=== PATIENT | female | born 1990 | race Caucasian/White ===

== ENCOUNTER 2021-03-23 15:26 | Inpatient (IN) | payer BC ==
[2021-03-23] MEDS ORDERED: Ondansetron 4 MG/2 ML SDV IVPUSH PRN (16:01)
[2021-03-23] MEDS ORDERED: Nalbuphine 10 MG/1 ML Vial IVPUSH PRN (16:01)
[2021-03-23] MEDS ORDERED: Sodium Chloride 0.9% 10 ML Syringe FLUSH PRN (16:01)
--- NOTE | 2021-03-23 16:04 | PCM.LDHP ---
L&D History of Present Illness - General Date of Service: 03/23/21 Admit Problem/Dx: Patient Status Order with Admit Dx/Problem 03/23/21 16:01 Patient Status [ADT] Routine Admission Diagnosis/Problem Admission Diagnosis/Problem Normal in third trimester Source of Information: Patient History Limitations: Reports: No Limitations - History of Present Illness Introduction:: Patient is a 31 y/o at 40 4/7 wks who presents with concerns of SROM. Occurred at about 1400 today. Few larger gushes per her report. 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 LMP (Approximate): - Past Surgical History HEENT Surgical History: Reports: Oral Surgery GI Surgical History: Reports: Appendectomy Female Surgical History: Reports: Section Social & Family History - Tobacco Use Tobacco Use Status *Q: Former Tobacco User - Alcohol Use Alcohol Use History: No - Recreational Drug Use Recreational Drug Use: No H&P Review of Systems - Review of Systems: Review Of Systems: See Below General: Reports: No Symptoms Pulmonary: Reports: No Symptoms Cardiovascular: Reports: No Symptoms Gastrointestinal: Reports: No Symptoms Genitourinary: Reports: No Symptoms Musculoskeletal: Reports: No Symptoms L&D Exam - Exam Exam: See Below - OB Specific Contraction Intensity: Irritability Movement: Active Heart Tones: Present Heart Tones per Min: 135 Heart Rate (FHR) Variability: Moderate (6-25 bmp) - Flores Score Flores Score Cervix Position: Midposition Flores Score Consistency: Soft Flores Score Effacement: 51-70% Flores Score Dilation: 1-2 cm Flores Score 's Station: -2 Flores Score Total: 7 - Exam General: Alert, Oriented, Cooperative Lungs: Clear to Auscultation, Normal Respiratory Effort Cardiovascular: Regular Rate, Regular Rhythm GI/Abdominal Exam: Soft, Non-Tender Genitourinary: Normal external exam Extremities: Normal Inspection Skin: Warm, Dry, Intact - Patient Data Result Diagrams: 03/23/21 16:38 - Problem List (1) 40 weeks gestation of SNOMED Code(s): 00294335 ICD Code: Z3A.40 - 40 WEEKS GESTATION OF Status: Acute Current Visit: Yes (2) History of delivery SNOMED Code(s): 038093932 ICD Code: Z98.891 - HISTORY OF UTERINE SCAR FROM PREVIOUS SURGERY Status: Acute Current Visit: Yes (3) Desires (vaginal after ) trial SNOMED Code(s): 745189904, 962722386 ICD Code: O34.219 - MATERNAL CARE FOR UNSP TYPE SCAR FROM PREVIOUS DEL Status: Acute Current Visit: Yes (4) PROM (premature rupture of membranes) SNOMED Code(s): 26330960 ICD Code: O42.90 - LEÓN ROM, 7TH0 BETW RUPT & ONST LABR, UNSP WEEKS OF GEST Status: Acute Current Visit: Yes Qualifiers: PROM onset of labor timing: unspecified duration between rupture of membranes and onset of labor PROM gestational age: full term Qualified Code(s): O42.92 - Full-term premature rupture of membranes, unspecified as to length of time between rupture and onset of labor Problem List Initiated/Reviewed/Updated: Yes Orders Last 24hrs: Active Orders 24 hr Category Date Time Status Patient Status [ADT] Routine ADT 03/23/21 16:01 Ordered Activity as Tolerated [RC] PFP Care 03/23/21 16:01 Ordered Heart Tones [RC] ASDIRECTED Care 03/23/21 16:01 Ordered Non Stress Test [RC] PER UNIT ROUTINE Care 03/23/21 16:01 Ordered Notify Provider [RC] PFP Care 03/23/21 16:01 Ordered Notify Provider [RC] PRN Care 03/23/21 16:01 Ordered Peripheral IV Care [RC] . DIRECTED Care 03/23/21 16:01 Ordered Vital Signs [RC] PER UNIT ROUTINE Care 03/23/21 16:01 Ordered Regular Diet [DIET] Diet 03/23/21 Dinner Ordered CBC W/O DIFF,HEMOGRAM [HEME] Routine Lab 03/23/21 16:01 Ordered CORONAVIRUS COVID-19 CHANDU [MOLEC] Stat Lab 03/23/21 16:03 Ordered HEP C VIRUS AB [REF] Routine Lab 03/23/21 16:01 Ordered RAPID PLASMA REAGIN,RPR [CHEM] Routine Lab 03/23/21 16:01 Ordered TYPE AND SCREEN [BBK] Routine Lab 03/23/21 16:01 Ordered Lactated Ringers [Ringers, Lactated] 1,000 ml Med 03/23/21 16:15 Ordered IV ASDIRECTED Nalbuphine [Nubain] Med 03/23/21 16:01 Ordered 10 mg IVPUSH Q2H PRN Ondansetron [Zofran] Med 03/23/21 16:01 Ordered 4 mg IVPUSH Q4H PRN Oxytocin/Lactated Ringers [Pitocin in LR 10 Units/1,000 Med 03/23/21 16:15 Ordered ML] 10 unit in 1,000 ml IV .CONTINUOUS Sodium Chloride 0.9% [Saline Flush] Med 03/23/21 16:01 Ordered 10 ml FLUSH ASDIRECTED PRN Electronic Heart Tones Ext w TOCO [WOMSER] Oth 03/23/21 16:01 Ordered Routine Electronic Heart Tones Internal [WOMSER] Per Unit Oth 03/23/21 16:01 Ordered Routine Peripheral IV Insertion Adult [OM.PC] Routine Oth 03/23/21 16:01 Ordered Resuscitation Status Routine Resus Stat 03/23/21 16:01 Ordered Assessment/Plan Comment:: * Labs done * GBS negative * Forebag ruptured, continue to wait for contractions. Reviewed if no contractions by 6 hours post ROM may need to consider pitocin augmentation * Pain management per patient preference * Anticipate
[2021-03-23] MEDS ORDERED: Oxytocin/Lactated Ringers 10 UNIT/1,000 ML BAG IV SCH (16:15)
[2021-03-23] MEDS: Lactated Ringers 1,000 ML IV SCH (21:39)
[2021-03-23] MEDS ORDERED: Bupivacaine/fentaNYL/NS 100 ML Bag EPIDUR PRN (22:58)
[2021-03-23] MEDS ORDERED: fentaNYL 100 MCG/2 ML SDV EPIDUR PRN (22:58)
[2021-03-23] MEDS ORDERED: ePHEDrine 50 MG/ML SDV IVPUSH PRN (22:58)
[2021-03-23] MEDS ORDERED: diphenhydrAMINE 50 MG/ML SDV IVPUSH PRN (22:58)
--- NOTE | 2021-03-23 23:13 | PCM.PREANE ---
Preanesthetic Assessment - Procedure Proposed Procedure: Labor epidural - Anesthesia/Transfusion/Family Hx Anesthesia History: Prior Anesthesia Without Reaction Other Type of Anesthesia Reaction Comment: hypotension with epidural Family History of Anesthesia Reaction: No Transfusion History: No Prior Transfusion(s) Intubation History: Unknown - Review of Systems General: No Symptoms Pulmonary: No Symptoms Cardiovascular: No Symptoms Gastrointestinal: Abdominal Pain (uterine contractions) Neurological: No Symptoms Other: Reports: None - Physical Assessment NPO Status Date: 03/23/21 NPO Status Time: 18:00 Vital Signs: Last Vital Signs Temp 98.3 F 03/23/21 16:01 Pulse 87 03/23/21 16:01 Resp 16 03/23/21 16:01 BP 109/80 03/23/21 16:01 Pulse Ox 100 03/23/21 16:01 Height: 1.63 m Weight: 83.915 kg ASA Class: 2 Mental Status: Alert & Oriented x3 Dentition: Reports: Normal Dentition Thyro-Mental Finger Breadths: 3 Mouth Opening Finger Breadths: 3 ROM/Head Extension: Full Lungs: Clear to Auscultation, Normal Respiratory Effort Cardiovascular: Regular Rate, Regular Rhythm - Lab Values: Laboratory Last Values WBC 7.47 K/mm3 (3.98-10.04) 03/23/21 16:38 RBC 3.97 M/mm3 (3.98-5.22) L 03/23/21 16:38 Hgb 12.1 gm/dl (11.2-15.7) 03/23/21 16:38 Hct 35.4 % (34.1-44.9) 03/23/21 16:38 MCV 89.2 fl (79.4-94.8) 03/23/21 16:38 MCH 30.5 pg (25.6-32.2) 03/23/21 16:38 MCHC 34.2 g/dl (32.2-35.5) 03/23/21 16:38 RDW Std Deviation 41.5 fL (36.4-46.3) 03/23/21 16:38 Plt Count 168 K/mm3 (182-369) L 03/23/21 16:38 MPV 10.6 fl (9.4-12.3) 03/23/21 16:38 RPR Non-reactive (NONREACTIVE) 03/23/21 16:38 SARS-CoV-2 RNA (CHANDU) Negative (NEGATIVE) 03/23/21 16:10 Blood Type B POSITIVE 03/23/21 16:01 Gel Antibody Screen Negative 03/23/21 16:01 - Allergies Allergies/Adverse Reactions: Allergies Allergy/AdvReac Type Severity Reaction Status Date / Time environmental Allergy Other Uncoded 03/23/21 17:26 - Blood Blood Available: Yes Product(s) Available: PRBC - Acknowledgements Anesthesia Type Planned: Epidural Pt an Appropriate Candidate for the Planned Anesthesia: Yes Alternatives and Risks of Anesthesia Discussed w Pt/Guardian: Yes Pt/Guardian Understands and Agrees with Anesthesia Plan: Yes PreAnesthesia Questionnaire HEENT History: Reports: Impaired Vision, Other (See Below) Other HEENT History: contacts and glasses Respiratory History: Reports: Other (See Below) Other Respiratory History: nasal stuffiness with allergies Gastrointestinal History: Reports: GERD 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: Psychiatric History: Reports: Anxiety, Depression - Past Surgical History HEENT Surgical History: Reports: Oral Surgery GI Surgical History: Reports: Appendectomy Female Surgical History: Reports: Section - SUBSTANCE USE Tobacco Use Status *Q: Former Tobacco User Tobacco Use Within Last Twelve Months: No Second Hand Smoke Exposure: No Days Per Week of Alcohol Use: 0 Recreational Drug Use History: No - HOME MEDS Home Medications: Home Meds Cetirizine HCl [Zyrtec] 10 mg PO ASDIRECTED PRN 03/23/21 [History] No122/Iron/Folic Acid [ Multi Tablet] 1 each PO DAILY 03/23/21 [History] - CURRENT (IN HOUSE) MEDS Current Meds: Current Medications Diphenhydramine HCl (Diphenhydramine 50 Mg/Ml Sdv) 25 mg IVPUSH Q6H PRN PRN Reason: pruritis Ephedrine Sulfate (Ephedrine 50 Mg/Ml Sdv) 5 mg IVPUSH ASDIRECTED PRN PRN Reason: Hypotension Fentanyl (Fentanyl 100 Mcg/2 Ml Sdv) 100 mcg EPIDUR Q3H PRN PRN Reason: Pain Fentanyl/Bupivacaine HCl (Bupivacaine/Fentanyl/Ns 100 Ml Bag) 100 ml EPIDUR ASDIRECTED PRN PRN Reason: Pain Oxytocin/Lactated Ringer's (Pitocin In Lr 10 Units/1,000 Ml) 10 unit in 1,000 mls @ 500 mls/hr IV .CONTINUOUS JONAH Lactated Ringer's (Ringers, Lactated) 1,000 mls @ 100 mls/hr IV ASDIRECTED JONAH Last Admin: 03/23/21 21:39 Dose: 100 mls/hr Documented by: Nalbuphine HCl (Nalbuphine 10 Mg/1 Ml Vial) 10 mg IVPUSH Q2H PRN PRN Reason: Pain Last Admin: 03/23/21 20:36 Dose: 10 mg Documented by: Ondansetron HCl (Ondansetron 4 Mg/2 Ml Sdv) 4 mg IVPUSH Q4H PRN PRN Reason: Nausea/Vomiting Sodium Chloride (Sodium Chloride 0.9% 10 Ml Syringe) 10 ml FLUSH ASDIRECTED PRN PRN Reason: Keep Vein Open
[2021-03-24] MEDS ORDERED: Bupivacaine 0.25% 10 ML SDV ONE
--- NOTE | 2021-03-24 03:18 | PCM.DEL ---
L & D Note - General Info Date of Service: 03/24/21 - Delivery Note Labor: Spontaneous Delivery Outcome: Livebirth Delivery Method: Spontaneous Vaginal Delivery-Single Delivery Mode: Spontaneous Presentation: Right Occiput Anterior (HELENE) Nuchal Cord: None Anesthesia Type: Epidural Amniotic Fluid Description: Clear Episiotomy Type: None Laceration: None Placenta: Intact, Spontaneous Cord: 3 Vessels Estimated Blood Loss: 300 Resuscitation Needed: Yes [place]: Bulb Syringe, Stimulated, Warmed, [place] Used, Warmer Used Delivery Comments (Free Text/Narrative):: Patient found to be complete and began pushing. With maternal pushing effort head delivered from HELENE presentation. No nuchal cord present. With gentle downward traction shoulders and body delivered. placed on maternal abdomen. Cord clamped and cut. Cord blood obtained. Placenta allowed time to separate and expelled intact. Inspection of perineum showed no lacerations - General Info Date of Service: 03/24/21 - Patient Data Vitals - Most Recent: Last Vital Signs Temp 36.8 C 03/23/21 16:01 Pulse 87 03/23/21 16:01 Resp 16 03/23/21 16:01 BP 109/80 03/23/21 16:01 Pulse Ox 100 03/23/21 16:01 Weight - Most Recent: 83.915 kg - Exam Urinary Catheter Total Time: 0Days 0Hours - Problem List & Annotations (1) 40 weeks gestation of SNOMED Code(s): 39548757 Code(s): Z3A.40 - 40 WEEKS GESTATION OF Status: Acute Current Visit: Yes (2) History of delivery SNOMED Code(s): 722245597 Code(s): Z98.891 - HISTORY OF UTERINE SCAR FROM PREVIOUS SURGERY Status: Acute Current Visit: Yes (3) Desires (vaginal after ) trial SNOMED Code(s): 321987316, 382509339 Code(s): O34.219 - MATERNAL CARE FOR UNSP TYPE SCAR FROM PREVIOUS DEL Status: Acute Current Visit: Yes (4) PROM (premature rupture of membranes) SNOMED Code(s): 87345059 Code(s): O42.90 - LEÓN ROM, 7TH0 BETW RUPT & ONST LABR, UNSP WEEKS OF GEST Status: Acute Current Visit: Yes Qualifiers: PROM onset of labor timing: unspecified duration between rupture of membranes and onset of labor PROM gestational age: full term Qualified Code(s): O42.92 - Full-term premature rupture of membranes, unspecified as to length of time between rupture and onset of labor (5) , delivered, current hospitalization SNOMED Code(s): 681457874 Code(s): O34.219 - MATERNAL CARE FOR UNSP TYPE SCAR FROM PREVIOUS DEL Status: Acute Current Visit: Yes - Problem List Review Problem List Initiated/Reviewed/Updated: Yes - My Orders Last 24 Hours: My Active Orders 03/23/21 16:01 Activity as Tolerated [RC] PFP Heart Tones [RC] ASDIRECTED Notify Provider [RC] PFP Notify Provider [RC] PRN Peripheral IV Care [RC] . DIRECTED Vital Signs [RC] PER UNIT ROUTINE Nalbuphine [Nubain] 10 mg IVPUSH Q2H PRN Ondansetron [Zofran] 4 mg IVPUSH Q4H PRN Sodium Chloride 0.9% [Saline Flush] 10 ml FLUSH ASDIRECTED PRN Electronic Heart Tones Ext w TOCO [WOMSER] Routine Electronic Heart Tones Internal [WOMSER] Per Unit Routine Peripheral IV Insertion Adult [OM.PC] Routine Resuscitation Status Routine 03/23/21 16:13 Patient Status [ADT] Routine 03/23/21 16:15 Lactated Ringers [Ringers, Lactated] 1,000 ml IV ASDIRECTED Oxytocin/Lactated Ringers [Pitocin in LR 10 Units/1,000 ML] 10 unit in 1,000 ml IV .CONTINUOUS 03/23/21 16:38 HEP C VIRUS AB [REF] Routine 03/23/21 Dinner Regular Diet [DIET] 03/24/21 03:16 Patient Status Manage Transfer [TRANSFER] Routine - Assessment Assessment:: PPD#0 - Plan Plan:: * Routine cares * Breast feeding * Discharge home in 1-2 days
[2021-03-24] MEDS ORDERED: Acetaminophen 325 MG Tab PO PRN (04:00)
[2021-03-24] MEDS ORDERED: Witch Hazel Medicated Pads 40/Jar TOP PRN (04:00)
[2021-03-24] MEDS ORDERED: Docusate Sodium 100 MG Cap PO PRN (04:00)
[2021-03-24] MEDS ORDERED: Benzocaine/Menthol 20%-0.5% Spray 56 GM Canister TOP PRN (04:00)
[2021-03-24] MEDS: Lactated Ringers 1,000 ML IV SCH ×3 (05:34→05:37)
[2021-03-24] MEDS: Ibuprofen 600 MG Tab PO PRN ×3 (07:36→18:34)
--- NOTE | 2021-03-24 07:41 | PCM48HPAN ---
Post Anesthesia Note - EVALUATION WITHIN 48HRS OF ANESTHETIC Vital Signs in Normal Range: Yes Patient Participated in Evaluation: Yes Respiratory Function Stable: Yes Airway Patent: Yes Cardiovascular Function Stable: Yes Hydration Status Stable: Yes Pain Control Satisfactory: Yes Nausea and Vomiting Control Satisfactory: Yes Mental Status Recovered: Yes Vital Signs: Last Vital Signs Temp 98.3 F 03/23/21 16:01 Pulse 87 03/23/21 16:01 Resp 16 03/23/21 16:01 BP 109/80 03/23/21 16:01 Pulse Ox 100 03/23/21 16:01
[2021-03-25] MEDS: Ibuprofen 600 MG Tab PO PRN ×2 (04:38→09:26)
--- NOTE | 2021-03-25 06:37 | PCM.DCSUM1 ---
Discharge Summary - Discharge Data Discharge Date: 03/25/21 Discharge Disposition: Home, Self-Care 01 Condition: Good - Referral to Home Health Primary Care Physician: Zahra Faye MD - Discharge Diagnosis/Problem(s) (1) 40 weeks gestation of SNOMED Code(s): 16632052 ICD Code: Z3A.40 - 40 WEEKS GESTATION OF Status: Acute Current Visit: Yes (2) History of delivery SNOMED Code(s): 894472643 ICD Code: Z98.891 - HISTORY OF UTERINE SCAR FROM PREVIOUS SURGERY Status: Acute Current Visit: Yes (3) Desires (vaginal after ) trial SNOMED Code(s): 078908132, 179508866 ICD Code: O34.219 - MATERNAL CARE FOR UNSP TYPE SCAR FROM PREVIOUS DEL Status: Acute Current Visit: Yes (4) PROM (premature rupture of membranes) SNOMED Code(s): 15323696 ICD Code: O42.90 - LEÓN ROM, 7TH0 BETW RUPT & ONST LABR, UNSP WEEKS OF GEST Status: Acute Current Visit: Yes Qualifiers: PROM onset of labor timing: unspecified duration between rupture of membranes and onset of labor PROM gestational age: full term Qualified Code(s): O42.92 - Full-term premature rupture of membranes, unspecified as to length of time between rupture and onset of labor (5) , delivered, current hospitalization SNOMED Code(s): 845980931 ICD Code: O34.219 - MATERNAL CARE FOR UNSP TYPE SCAR FROM PREVIOUS DEL Status: Acute Current Visit: Yes - Patient Summary/Data Complications: None Consults: None Recommended Follow-up Testing/Procedures: Follow up in 3 weeks for check Hospital Course: 31 y/o at 40 4/7 wks who presented with PROM. She progressed well after AROM of forebag and underwent an uncomplicated . See delivery note. did well and was discharged home on PPD#1 - Patient Instructions Diet: Regular Diet as Tolerated Activity: As Tolerated Activity, Other: Pelvic rest for 6 weeks Driving: May Drive Today Showering/Bathing: May Shower Showering/Bathing, Other: May Bathe Notify Provider of: Fever, Increased Pain, Swelling and Redness, Drainage, Nausea and/or Vomiting - Discharge Plan *PRESCRIPTION DRUG MONITORING PROGRAM REVIEWED*: No *COPY OF PRESCRIPTION DRUG MONITORING REPORT IN PATIENT ENRIQUE: No Home Medications: Home Meds No122/Iron/Folic Acid [ Multi Tablet] 1 each PO DAILY 03/23/21 [History] Docusate Sodium [Colace] 100 mg PO BID PRN cap 03/25/21 [Rx] Ibuprofen [Motrin] 600 mg PO Q4H PRN tablet 03/25/21 [Rx] Referrals: Zahra Faye MD [Primary Care Provider] - (3 weeks for check ) - Discharge Summary/Plan Comment DC Time >30 min.: No - Patient Data Vitals - Most Recent: Last Vital Signs Temp 36.6 C 03/25/21 04:24 Pulse 62 03/25/21 04:24 Resp 16 03/25/21 04:24 BP 98/75 03/25/21 04:24 Pulse Ox 98 03/25/21 04:24 Weight - Most Recent: 83.915 kg I&O - Last 24 hours: Intake & Output 03/24/21 03/24/21 03/25/21 14:59 22:59 06:59 Intake Total 4620 240 Balance 4620 240 Med Orders - Current: Current Medications Acetaminophen (Acetaminophen 325 Mg Tab) 650 mg PO Q4H PRN PRN Reason: mild pain or fever Benzocaine/Menthol (Benzocaine/Menthol 20%-0.5% [place] 56 Gm Canister) 0 gm TOP ASDIRECTED PRN PRN Reason: Perineal Comfort Measure Last Admin: 03/24/21 11:32 Dose: 1 spray Documented by: Docusate Sodium (Docusate Sodium 100 Mg Cap) 100 mg PO BID PRN PRN Reason: Constipation Ibuprofen (Ibuprofen 600 Mg Tab) 600 mg PO Q4H PRN PRN Reason: Mild pain or fever Last Admin: 03/25/21 04:38 Dose: 600 mg Documented by: Alex Yee (Alex Yee Medicated Pads 40/Jar) 1 pad TOP ASDIRECTED PRN PRN Reason: Perineal Comfort Measure Last Admin: 03/24/21 11:32 Dose: 1 pad Documented by: Discontinued Medications Bupivacaine HCl (Bupivacaine 0.25% 10 Ml Sdv) 10 ml .ROUTE .STK-MED ONE Stop: 03/24/21 00:01 Diphenhydramine HCl (Diphenhydramine 50 Mg/Ml Sdv) 25 mg IVPUSH Q6H PRN PRN Reason: pruritis Ephedrine Sulfate (Ephedrine 50 Mg/Ml Sdv) 5 mg IVPUSH ASDIRECTED PRN PRN Reason: Hypotension Last Admin: 03/23/21 23:21 Dose: 5 mg Documented by: Fentanyl (Fentanyl 100 Mcg/2 Ml Sdv) 100 mcg EPIDUR Q3H PRN PRN Reason: Pain Last Admin: 03/23/21 23:31 Dose: 100 mcg Documented by: Fentanyl/Bupivacaine HCl (Bupivacaine/Fentanyl/Ns 100 Ml Bag) 100 ml EPIDUR ASDIRECTED PRN PRN Reason: Pain Last Admin: 03/23/21 23:31 Dose: 100 ml Documented by: Oxytocin/Lactated Ringer's (Pitocin In Lr 10 Units/1,000 Ml) 10 unit in 1,000 mls @ 500 mls/hr IV .CONTINUOUS JONAH Last Admin: 03/24/21 05:38 Dose: 500 mls/hr Documented by: Lactated Ringer's (Ringers, Lactated) 1,000 mls @ 100 mls/hr IV ASDIRECTED JONAH Last Admin: 03/24/21 05:37 Dose: 100 mls/hr Documented by: Nalbuphine HCl (Nalbuphine 10 Mg/1 Ml Vial) 10 mg IVPUSH Q2H PRN PRN Reason: Pain Last Admin: 03/23/21 20:36 Dose: 10 mg Documented by: Ondansetron HCl (Ondansetron 4 Mg/2 Ml Sdv) 4 mg IVPUSH Q4H PRN PRN Reason: Nausea/Vomiting Sodium Chloride (Sodium Chloride 0.9% 10 Ml Syringe) 10 ml FLUSH ASDIRECTED PRN PRN Reason: Keep Vein Open
[2021-03-25] MEDS ORDERED: Measles, Mumps & Rubella Vaccine 0.5 ML SDV SUBCUT ONE (07:01)
[2021-03-25 10:26] VITALS: BP 105/77; PULSE 72
== END 2021-03-25 10:25 | disposition home or self-care (01) | DRG 560 ==
LOC: JD.OBCHECK 15:26 → JD.OB 15:32 → JD.OBCHECK 16:13 → OBSVTOIN 03-24 02:55 → JD.MS 03-24 02:56 → JD.OB 03-24 11:26
PROVIDERS: ADMIT Obstetrics & Gynecology; ATTEND Obstetrics & Gynecology
PROC: 10E0XZZ Delivery of Products of Conception, External Approach (ICD-10-PCS; principal; 2021-03-24)
PROC: 10907ZC Drainage of Amniotic Fluid, Therapeutic from Products of Conception, Via Natural or Artificial Opening (ICD-10-PCS; 2021-03-24)
PROC: 3E0R3BZ Introduction of Anesthetic Agent into Spinal Canal, Percutaneous Approach (ICD-10-PCS; 2021-03-24)
PROC: 00HU33Z Insertion of Infusion Device into Spinal Canal, Percutaneous Approach (ICD-10-PCS; 2021-03-24)
DX: O42.02 Full-term premature rupture of membranes, onset of labor within 24 hours of rupture (principal); Z37.0 Single live birth; Z20.822 Contact with and (suspected) exposure to COVID-19; Z87.891 Personal history of nicotine dependence; Z3A.40 40 weeks gestation of pregnancy; O34.219 Maternal care for unspecified type scar from previous cesarean delivery
CPT/HCPCS: 01967; 36415; 51702; 59025; 59409; 85027; 86592; 86803; 86850; 86900; 86901; 90471; 90707; A9270-GY; J2300; J2590; J3010; J3490; J7120; U0002